=== PATIENT | male | born 1965 | race Caucasian/White ===

== ENCOUNTER → 2018-11-01 | Outpatient (CLI) | payer OTHER ==
[~2018-11-01] MED LIST: AMLO10 PO; ZESTRIL40 MG PO
== END | disposition home or self-care (01) ==
LOC: LAB SHORT 07:47 → PLD 07:47
DX: D48.5 Neoplasm of uncertain behavior of skin (principal)
CPT/HCPCS: 88305

== ENCOUNTER 2020-04-08 10:17 | Emergency (ER) | payer OTHER ==
[~2020-04-08] VITALS: Ht 177.8 cm; Wt 98.9 kg
[2020-04-08 12:07] LABS: BASOPHILS ABSOLUTE AUTO 0.07 K/mm3 (0.00-0.23); BASOPHILS PERCENT AUTO 1 % (0-2); EOSINOPHILS ABSOLUTE AUTO 0.07 K/mm3 (0.00-0.68); EOSINOPHILS PERCENT AUTO 1 % (0-6); Hematocrit 45.3 % (37.0-53.0); Hemoglobin 15.7 g/dL (13.5-17.5); IMMATURE GRAN ABSOLUTE AUTO 0.04 K/mm3 (0.00-0.10); IMMATURE GRAN PERCENT AUTO 0 % (0-1); LYMPHOCYTES ABSOLUTE AUTO 1.23 K/mm3 (0.84-5.20); LYMPHOCYTES PERCENT AUTO 10 % (21-46); MONOCYTES ABSOLUTE AUTO 0.98 K/mm3 (0.16-1.47); MONOCYTES PERCENT AUTO 8 % (4-13); Mean Corpuscular HGB 32.2 pg (26.0-34.0); Mean Corpuscular HGB Conc 34.7 g/dL (31.5-36.5); Mean Corpuscular Volume 93 fL (80-100); Mean Platelet Volume 10.2 fL (9.1-12.4); NEUTROPHILS ABSOLUTE AUTO 10.04 K/mm3 (1.96-9.15); NEUTROPHILS PERCENT AUTO 81 % (41-73); Platelet Count 184 K/mm3 (150-400); RDW Coefficient Variation 12.8 % (11.7-14.2); RDW Standard Deviation 43.9 fL (35.1-46.3); Red Blood Cell Count 4.87 M/mm3 (4.30-5.90); White Blood Cell Count 12.43 K/mm3 (4.00-11.30)
[2020-04-08 12:24] LABS: Alanine Aminotransfer (ALT/SGP 34 U/L (12-78); Alk Phos 57 U/L (50-136); Anion Gap 7 mmol/L (6-16); Aspartate Aminotrans (AST/SGOT 30 U/L (12-37); Bilirubin, Total 0.5 mg/dL (0.1-1.0); Blood Urea Nitrogen 12 mg/dL (8-24); Bun/Creatinine Ratio 12.9 (12.0-20.0); CO2, Blood 28 mmol/L (21-32); Calcium, Blood 8.6 mg/dL (8.5-10.1); Chloride, Blood 103 mmol/L (98-108); Creatinine, Blood 0.93 mg/dL (0.60-1.20); Globulin, Blood 4.2 g/dL (2.2-4.0); Glomerular Filtration Rate >60 (60-); Glucose, Blood 95 mg/dL (70-99); Potassium, Blood 4.4 mmol/L (3.5-5.5); Sodium, Blood 138 mmol/L (136-145); Total Protein, Blood 8.2 g/dL (6.4-8.2)
[2020-04-08 12:29] LABS: International Normalized Ratio 1.03
[2020-04-08] MEDS ORDERED: CLON.1 PO (12:39)
[2020-04-08 12:48] LABS: Source, Urine Voided
[2020-04-08 12:57] LABS: Appearance, Urine Turbid (Clear); Bilirubin, Urine Neg (Neg); Blood, Urine 5+ (Neg); Color, Urine Brown (P-Yellow); Glucose Qualitative, Urine Neg (Neg); Ketones, Urine 1+ (Neg); Leukocyte Esterase, Urine 2+ (Neg); Nitrite, Urine Pos (Neg); Protein, Urine 4+ (Neg); Specific Gravity, Urine 1.025 (1.003-1.022); Urobilinogen, Urine NORM (Normal)
[2020-04-08 12:59] LABS: Red Blood Cells, Urine TNTC /hpf (0-2)
[2020-04-08 13:01] LABS: Bacteria Few /hpf; Squamous Epithelial Cells Rare /hpf (Few); White Blood Cells, Urine TNTC /hpf (0-5)
[2020-04-08] MEDS ORDERED: PHENA200 PO (13:41)
[2020-04-08] MEDS ORDERED: CIPRO500 M1 PO (13:41)
== END 2020-04-08 13:48 | disposition home or self-care (01) ==
LOC: ER 10:17
PROVIDERS: Emergency Medicine
DX: N30.91 Cystitis, unspecified with hematuria (principal); I10 Essential (primary) hypertension; Z79.899 Other long term (current) drug therapy
CPT/HCPCS: 74177; 80053; 81001; 85025; 85610; 85730; 87077; 87086; 87186; 99284-25; Q9967

== ENCOUNTER → 2021-02-19 | Outpatient (CLI) | payer OTHER | END | disposition home or self-care (01) | LOC: LAB EV 05:30 | DX: K27.9 Peptic ulcer, site unspecified, unspecified as acute or chronic, without hemorrhage or perforation (principal) ==

== ENCOUNTER 2024-03-27 12:38 | Day surgery (SDC) | payer OTHER ==
[~2024-03-27] VITALS: Ht 177.8 cm; Wt 107.0 kg
[~2024-03-27 12:38] MED LIST changes: +CIPRO500 M1 PO; +CLON.1 PO; +Lactated Ringer's 1,000 ML IV ONE; +PHENA200 PO
[2024-03-27] MEDS ORDERED: KAPSPARGO SPRIN25 MG PO (13:57)
[2024-03-27] MEDS ORDERED: Lactated Ringer's 1,000 ML IV ONE (14:11)
[2024-03-27] MEDS ORDERED: propofoL 20 ML IV ONE (15:35)
[2024-03-27] MEDS ORDERED: Lidocaine HCl/Pf 1% 5 ML VIAL ONE (15:37)
[2024-03-27] MEDS ORDERED: Midazolam HCl 1MG / ML 2ML Vial ONE (15:38)
[2024-03-27] MEDS ORDERED: FentaNYL Citrate 50 MCG/ML 2 ML Injection ONE (15:38)
[2024-03-27] MEDS ORDERED: Rocuronium Bromide 10 MG/ML 5ML Injection IV ONE (15:38)
[2024-03-27] MEDS ORDERED: Ondansetron HCl 2 MG / ML 2ML Vial ONE (15:39)
[2024-03-27] MEDS ORDERED: Dexamethasone Sod Phos 10 MG/ML 1ML VIAL ONE (15:39)
[2024-03-27] MEDS ORDERED: Normal Saline 10 ML DISP.Syringe XX ONE (15:56)
[2024-03-27] MEDS ORDERED: EPINEPhrine HCl 1 MG/ML 1ML Amp XX ONE (15:56)
[2024-03-27] MEDS ORDERED: Glycopyrrolate 0.2 MG/ML 5ML VIAL ONE (16:02)
[2024-03-27] MEDS ORDERED: Neostigmine Methylsulfate 5MG/5ML SYR ONE (16:02)
[2024-03-27] MEDS ORDERED: Sugammadex Sodium 200 MG/2ML SDV (100 MG/ML) ONE (16:16)
--- NOTE | 2024-03-27 16:39 | NUR ---
03/27/24 1639 DANICA ARMENTA ANESTHESIOLOGIST AWARE OF PVCS PREOP, INTRA OP AND POST OP. PT IS OKAY TO GO HOME IF ASYMPTOMATIC.
[2024-03-27 16:52] VITALS: BP 124/89
--- NOTE | 2024-03-27 16:53 | NUR ---
03/27/24 3633 DANICA ARMENTA JOANNA AT BEDSIDE, NO QUESTIONS OR CONCERNS AT THIS TIME. PRAKASH BE
== END 2024-03-27 17:13 | disposition home or self-care (01) ==
LOC: ORSCSDS 12:38
PROVIDERS: Otolaryngology
PROC: 0CJS8ZZ Inspection of Larynx, Via Natural or Artificial Opening Endoscopic (ICD-10-PCS; principal; 2024-03-27 14:00)
DX: R49.0 Dysphonia (principal); K21.9 Gastro-esophageal reflux disease without esophagitis; I10 Essential (primary) hypertension; G47.33 Obstructive sleep apnea (adult) (pediatric); Z85.828 Personal history of other malignant neoplasm of skin; E66.9 Obesity, unspecified; Z68.33 Body mass index [BMI] 33.0-33.9, adult; Z79.899 Other long term (current) drug therapy
CPT/HCPCS: J0171; J1100; J2001; J2250; J2405; J2704; J2710; J3010; J7120

== ENCOUNTER 2025-01-23 13:48 | Emergency (ER) | payer OTHER ==
[~2025-01-23] VITALS: Ht 177.8 cm; Wt 105.2 kg
[~2025-01-23 13:48] MED LIST changes: +KAPSPARGO SPRIN25 MG PO; -Lactated Ringer's 1,000 ML IV ONE
[2025-01-23] MEDS ORDERED: NEURONTIN300 MG PO (15:18)
[2025-01-23] MEDS ORDERED: Hydrochlorothia50 MG PO (15:18)
[2025-01-23] MEDS ORDERED: PRED20 PO (15:18)
[2025-01-23] MEDS ORDERED: IRBESARTAN300 M3 PO (15:18)
[2025-01-23] MEDS ORDERED: MOBIC15 MG PO (15:18)
[2025-01-23] MEDS ORDERED: PEPCID20 MG PO (15:19)
[2025-01-23] MEDS ORDERED: METO50ER PO (15:19)
[2025-01-23] MEDS ORDERED: ROSUVASTATIN CAL5 MG PO (15:20)
[2025-01-23] MEDS ORDERED: Cyclobenzaprine HCl 10 MG Tab PO ONE (15:55)
[2025-01-23 16:40] LABS: BASOPHILS ABSOLUTE AUTO 0.06 K/mm3 (0.00-0.23); BASOPHILS PERCENT AUTO 1 % (0-2); EOSINOPHILS ABSOLUTE AUTO 0.03 K/mm3 (0.00-0.68); EOSINOPHILS PERCENT AUTO 0 % (0-6); Hematocrit 42.3 % (37.0-53.0); IMMATURE GRAN ABSOLUTE AUTO 0.08 K/mm3 (0.00-0.10); IMMATURE GRAN PERCENT AUTO 1 % (0-1); LYMPHOCYTES ABSOLUTE AUTO 0.71 K/mm3 (0.84-5.20); LYMPHOCYTES PERCENT AUTO 7 % (21-46); MONOCYTES ABSOLUTE AUTO 0.28 K/mm3 (0.16-1.47); MONOCYTES PERCENT AUTO 3 % (4-13); Mean Corpuscular HGB 31.3 pg (26.0-34.0); Mean Corpuscular HGB Conc 35.5 g/dL (31.5-36.5); Mean Corpuscular Volume 88 fL (80-100); Mean Platelet Volume 10.3 fL (9.1-12.4); NEUTROPHILS ABSOLUTE AUTO 9.76 K/mm3 (1.96-9.15); NEUTROPHILS PERCENT AUTO 89 % (41-73); Platelet Count 211 K/mm3 (150-400); RDW Coefficient Variation 12.4 % (11.7-14.2); RDW Standard Deviation 40.4 fL (35.1-46.3); White Blood Cell Count 10.92 K/mm3 (4.00-11.30)
[2025-01-23 16:56] LABS: Albumin, Blood 3.6 g/dL (3.4-5.0); Albumin/Globulin Ratio 0.9 (0.8-1.8); Bilirubin, Total 0.3 mg/dL (0.1-1.0); Bun/Creatinine Ratio 19.7 (12.0-20.0); Calcium, Blood 9.5 mg/dL (8.5-10.1); Creatinine, Blood 0.91 mg/dL (0.60-1.20); Globulin, Blood 3.8 g/dL (2.2-4.0); Potassium, Blood 4.1 mmol/L (3.5-5.5); Total Protein, Blood 7.4 g/dL (6.4-8.2)
[2025-01-23] MEDS ORDERED: Diazepam 5 MG / ML 2ML SYR IV ONE ×2 (17:35→19:25)
[2025-01-23 18:00] VITALS: BP 184/94
[2025-01-23] MEDS ORDERED: Lidocaine 4% 1 Patch TOP ONE (18:30)
[2025-01-23] MEDS ORDERED: CloNIDine 0.1 MG Tab PO ONE (19:25)
[2025-01-23] MEDS ORDERED: FAMO20 PO (19:33)
[2025-01-23] MEDS ORDERED: CYCL10 PO (19:33)
[2025-01-23] MEDS ORDERED: IBUP600 PO (19:33)
[2025-01-24] MEDS ORDERED: Lidocaine 4% 1 Patch TOP SCH (09:00)
== END 2025-01-23 20:00 | disposition home or self-care (01) ==
LOC: ER 13:48
PROVIDERS: Student in an Organized Health Care Education/Training Program
DX: M54.50 Low back pain, unspecified (principal); G89.29 Other chronic pain; I10 Essential (primary) hypertension; Z79.1 Long term (current) use of non-steroidal anti-inflammatories (NSAID); Z79.52 Long term (current) use of systemic steroids; Z79.899 Other long term (current) drug therapy
CPT/HCPCS: 80053; 85025; 96374; 96376; 99284-25; A9270; J3360

== ENCOUNTER → 2025-02-28 | Outpatient (CLI) | payer OTHER ==
[~2025-02-28] MED LIST changes: +CYCL10 PO; +FAMO20 PO; +Hydrochlorothia50 MG PO; +IBUP600 PO; +IRBESARTAN300 M3 PO; +METO50ER PO; +MOBIC15 MG PO; +NEURONTIN300 MG PO; +PEPCID20 MG PO; +PRED20 PO; +ROSUVASTATIN CAL5 MG PO
[2025-02-28 19:42] LABS: BASOPHILS ABSOLUTE AUTO 0.03 K/mm3 (0.00-0.23); BASOPHILS PERCENT AUTO 0 % (0-2); EOSINOPHILS ABSOLUTE AUTO 0.02 K/mm3 (0.00-0.68); EOSINOPHILS PERCENT AUTO 0 % (0-6); Hematocrit 43.8 % (37.0-53.0); Hemoglobin 15.0 g/dL (13.5-17.5); IMMATURE GRAN ABSOLUTE AUTO 0.04 K/mm3 (0.00-0.10); IMMATURE GRAN PERCENT AUTO 0 % (0-1); LYMPHOCYTES ABSOLUTE AUTO 1.38 K/mm3 (0.84-5.20); LYMPHOCYTES PERCENT AUTO 14 % (21-46); MONOCYTES ABSOLUTE AUTO 0.68 K/mm3 (0.16-1.47); MONOCYTES PERCENT AUTO 7 % (4-13); Mean Corpuscular HGB Conc 34.2 g/dL (31.5-36.5); Mean Corpuscular Volume 92 fL (80-100); NEUTROPHILS ABSOLUTE AUTO 7.45 K/mm3 (1.96-9.15); NEUTROPHILS PERCENT AUTO 78 % (41-73); NRBC ABSOLUTE 0.00 K/mm3 (0.00-0.02); NRBC Auto 0.0 /100 WBC (0.0-0.2); Platelet Count 250 K/mm3 (150-400); RDW Coefficient Variation 13.4 % (11.7-14.2); RDW Standard Deviation 45.4 fL (35.1-46.3)
[2025-02-28 20:09] LABS: Alanine Aminotransfer (ALT/SGP 32.0 U/L (12-78); Albumin, Blood 3.8 g/dL (3.4-5.0); Albumin/Globulin Ratio 1.0 (0.8-1.8); Anion Gap 14.0 mmol/L (3-11); Aspartate Aminotrans (AST/SGOT 26.0 U/L (12-37); Bilirubin, Total 0.5 mg/dL (0.1-1.0); Blood Urea Nitrogen 22.0 mg/dL (8-24); CO2, Blood 27.0 mmol/L (21-32); Calcium, Blood 9.3 mg/dL (8.5-10.1); Chloride, Blood 99.0 mmol/L (98-108); Creatinine, Blood 0.67 mg/dL (0.60-1.20); Globulin, Blood 3.9 g/dL (2.2-4.0); Glucose, Blood 114.0 mg/dL (70-99); Potassium, Blood 4.1 mmol/L (3.5-5.5); Sodium, Blood 136.0 mmol/L (136-145); Total Protein, Blood 7.7 g/dL (6.4-8.2)
== END | disposition home or self-care (01) ==
LOC: LAB SHORT 18:21 → LAB 18:21
PROVIDERS: Family Medicine
DX: R06.2 Wheezing (principal)
CPT/HCPCS: 80053; 83880; 85025

== ENCOUNTER 2025-03-02 15:34 | Emergency (ER) | payer OTHER ==
[~2025-03-02] VITALS: Ht 177.8 cm; Wt 107.0 kg
[2025-03-02 15:37] VITALS: BP 162/81
== END 2025-03-02 17:39 | disposition home or self-care (01) ==
LOC: ER 15:34
DX: J39.8 Other specified diseases of upper respiratory tract (principal); I10 Essential (primary) hypertension; Z79.51 Long term (current) use of inhaled steroids; Z79.899 Other long term (current) drug therapy
CPT/HCPCS: 70491; Q9967

== ENCOUNTER 2025-03-04 08:21 | Inpatient (IN) | payer OTHER ==
[~2025-03-04] VITALS: Ht 177.8 cm; Wt 102.4 kg
[~2025-03-04 08:21] MED LIST changes: +HYDROCHLOROTHIAZIDE PO; -Hydrochlorothia50 MG PO
[2025-03-04] MEDS ORDERED: Albuterol 2.5 MG/3 ML VIAL INH SCH (08:25)
[2025-03-04 08:41] LABS: BASOPHILS ABSOLUTE AUTO 0.05 K/mm3 (0.00-0.23); BASOPHILS PERCENT AUTO 1 % (0-2); EOSINOPHILS ABSOLUTE AUTO 0.08 K/mm3 (0.00-0.68); EOSINOPHILS PERCENT AUTO 1 % (0-6); Hematocrit 46.7 % (37.0-53.0); Hemoglobin 15.9 g/dL (13.5-17.5); IMMATURE GRAN ABSOLUTE AUTO 0.05 K/mm3 (0.00-0.10); IMMATURE GRAN PERCENT AUTO 1 % (0-1); LYMPHOCYTES ABSOLUTE AUTO 1.79 K/mm3 (0.84-5.20); LYMPHOCYTES PERCENT AUTO 22 % (21-46); MONOCYTES ABSOLUTE AUTO 0.51 K/mm3 (0.16-1.47); MONOCYTES PERCENT AUTO 6 % (4-13); Mean Corpuscular HGB Conc 34.0 g/dL (31.5-36.5); Mean Corpuscular Volume 93 fL (80-100); NEUTROPHILS ABSOLUTE AUTO 5.62 K/mm3 (1.96-9.15); NEUTROPHILS PERCENT AUTO 69 % (41-73); NRBC ABSOLUTE 0.00 K/mm3 (0.00-0.02); NRBC Auto 0.0 /100 WBC (0.0-0.2); Platelet Count 215 K/mm3 (150-400); RDW Coefficient Variation 13.6 % (11.7-14.2); RDW Standard Deviation 46.4 fL (35.1-46.3)
[2025-03-04 08:59] LABS: Anion Gap 8.0 mmol/L (3-11); Blood Urea Nitrogen 15.0 mg/dL (8-24); CO2, Blood 32.0 mmol/L (21-32); Calcium, Blood 8.2 mg/dL (8.5-10.1); Chloride, Blood 101.0 mmol/L (98-108); Creatinine, Blood 0.67 mg/dL (0.60-1.20); Glucose, Blood 115.0 mg/dL (70-99); Potassium, Blood 4.1 mmol/L (3.5-5.5); Sodium, Blood 137.0 mmol/L (136-145)
[2025-03-04] MEDS ORDERED: Pantoprazole Sodium 40 MG Injection IV ONE (12:35)
[2025-03-04] MEDS ORDERED: Dexamethasone Sod Phos 10 MG/ML 1ML VIAL IV ONE (12:35)
[2025-03-04] MEDS ORDERED: Heparin Sodium,Porcine 5,000 UNIT/0.5 ML SDV SC SCH (14:00)
--- NOTE | 2025-03-04 15:42 | NUR ---
PT ARRIVED TO PCU 19 VIA CART FROM ER @1450. SOA WITH EXERTION, STRIDOR NOTED. SATS WNL ON RA. HR IN 110S, BP IN 180S SYSTOLIC. NOTIFIED DR. ANGULO, AWAITING ORDERS. RT TO BEDSIDE, STATES IMPROVED FROM ER AND RACEMIC EPI GIVEN IN ER. AWAITING ENT CONSULT FOR AM AT THIS TIME. UPDATED TOOL MACHINE SET UP OPERATORPRAKASH GARAY
[2025-03-04 18:06] VITALS: BP 151/98
[2025-03-04] MEDS ORDERED: Dexamethasone Sodium Phosphate 4 MG/ML 1ML Vial IV SCH (18:30)
--- NOTE | 2025-03-04 20:02 | NUR ---
ASSUMPTION OF CARE ASSUMED PT'S CARE AT 1900,BEDSIDE REPORT COMPLETED.PT RESTING IN BED WATCHING TV.PLAN OF CARE REVIEWED.PT DENIES PAIN,DENIES NEEDS.CALL LIGHT AND PT'S ITEMS WITHIN REACH.MONITORING ONGOING PER CAREPLAN.
[2025-03-04 20:17] VITALS: BP 150/88
[2025-03-04 23:45] VITALS: BP 153/85
[2025-03-05] VITALS (9 sets, daily range): BP systolic 136–151; BP diastolic 82–94
[2025-03-05 04:47] LABS: BASOPHILS ABSOLUTE AUTO 0.02 K/mm3 (0.00-0.23); BASOPHILS PERCENT AUTO 0 % (0-2); EOSINOPHILS ABSOLUTE AUTO 0.00 K/mm3 (0.00-0.68); EOSINOPHILS PERCENT AUTO 0 % (0-6); Hematocrit 44.5 % (37.0-53.0); Hemoglobin 15.3 g/dL (13.5-17.5); IMMATURE GRAN ABSOLUTE AUTO 0.05 K/mm3 (0.00-0.10); IMMATURE GRAN PERCENT AUTO 0 % (0-1); LYMPHOCYTES ABSOLUTE AUTO 0.55 K/mm3 (0.84-5.20); LYMPHOCYTES PERCENT AUTO 5 % (21-46); MONOCYTES ABSOLUTE AUTO 0.10 K/mm3 (0.16-1.47); MONOCYTES PERCENT AUTO 1 % (4-13); Mean Corpuscular HGB Conc 34.4 g/dL (31.5-36.5); Mean Corpuscular Volume 90 fL (80-100); NEUTROPHILS ABSOLUTE AUTO 10.92 K/mm3 (1.96-9.15); NEUTROPHILS PERCENT AUTO 94 % (41-73); NRBC ABSOLUTE 0.00 K/mm3 (0.00-0.02); NRBC Auto 0.0 /100 WBC (0.0-0.2); Platelet Count 219 K/mm3 (150-400); RDW Coefficient Variation 13.2 % (11.7-14.2); RDW Standard Deviation 43.9 fL (35.1-46.3)
[2025-03-05 05:12] LABS: Anion Gap 8.0 mmol/L (3-11); Blood Urea Nitrogen 18.0 mg/dL (8-24); CO2, Blood 31.0 mmol/L (21-32); Calcium, Blood 8.4 mg/dL (8.5-10.1); Chloride, Blood 98.0 mmol/L (98-108); Creatinine, Blood 0.55 mg/dL (0.60-1.20); Glucose, Blood 159.0 mg/dL (70-99); Potassium, Blood 3.9 mmol/L (3.5-5.5); Sodium, Blood 133.0 mmol/L (136-145)
[2025-03-05] MEDS ORDERED: Pantoprazole Sodium 40 MG Injection IV SCH (06:00)
--- NOTE | 2025-03-05 06:56 | NUR ---
PT MONITORED DURING THE SHIFT.PT PLACED ON 2L OF OXYGEN WHILE SLEEPING.PT REPORTS THAT HIS CONDITION HAS REMAINED UNCHANGED THROUGHOUT THE SHIFT.PT AWAKE AT THIS TIME,DENIES PAIN,DENIES SOB,DENIES NEEDS.CALL LIGHT AND PT'S ITEMS WITHIN REACH.
[2025-03-05] MEDS ORDERED: Lidocaine HCl 4% 5 ML SDA TOP SCH (08:15)
[2025-03-05] MEDS ORDERED: Oxymetazoline 0.05% Nasal Relief Spray 15mL BTL TOP SCH (08:15)
--- NOTE | 2025-03-05 10:16 | NUR ---
AM NOTE: ASSUMED CARE OF PT THIS AM AFTER RECEIVING REPORT FROM PRAKASH VASQUEZ. PT IS A&Ox4, SOFT/HOARSE VOICE BUT ABLE TO MAKE NEEDS KNOWN. PT DENIES INCREASED SOB BUT DOES ENDORSE DIFFICULTY GETTING DEEP BREATH, RESPIRATIONS MILDLY LABORED W/ STRIDOR NOTED TO UPPER LOBES, O2 SATS >93% ON RA. PT DENIES CP, SR ON MONITOR W/RATE 70s. DR SHANKS TO BEDSIDE THIS AM, ATTEMPTED LARYNGOSCOPY W/ RESULTED PLAN FOR TRACH PLACEMENT THIS AFTERNOON. PT V/U OF UPCOMING PROCEDURE AND NPO STATUS. PT PENDING TRANSFER TO ICU.
[2025-03-05] MEDS ORDERED: Metoclopramide HCl 5MG / ML 2ML Vial ONE (11:16)
[2025-03-05] MEDS ORDERED: Dexmedetomidine HCL 200 MCG / 2 ML ONE (11:23)
[2025-03-05] MEDS ORDERED: Rocuronium Bromide 10 MG/ML 5ML Injection IV ONE (12:27)
[2025-03-05] MEDS ORDERED: Midazolam HCl 1MG / ML 2ML Vial ONE (12:28)
[2025-03-05] MEDS ORDERED: FentaNYL Citrate 50 MCG/ML 2 ML Injection ONE (12:28)
[2025-03-05] MEDS ORDERED: Lidocaine 1%-Epineph 1:200000 30 ML SDV ONE (13:28)
[2025-03-05] MEDS ORDERED: EPINEPhrine HCl 1 MG / ML 30ML Vial ONE (13:28)
[2025-03-05] MEDS ORDERED: Oxymetazoline 0.05% Nasal Relief Spray 15mL BTL ONE (13:28)
--- NOTE | 2025-03-05 13:55 | NUR ---
UPDATE/TRANSFER: PT TO OR FOR PROCEDURE AT 1334 WITH PLANS TO TRANSFER TO ICU FOR RECOVERY. REPORT GIVEN TO PRAKASH DEVI IN ICU TO RECEIVE PT AFTER PROCEDURE.
--- NOTE | 2025-03-05 14:02 | NUR ---
History, Chart, Medications and Allergies reviewed before start of procedure. Pre-Op teaching done. Pt verbalizes understanding. Patient confirms NPO status and agrees with scheduled surgery.
[2025-03-05] MEDS ORDERED: Sugammadex Sodium 200 MG/2ML SDV (100 MG/ML) ONE (15:10)
--- NOTE | 2025-03-05 15:13 | NUR ---
03/05/25 1513 Barbara Wallace PROCEDURE BEGAN MAC SEDATION. AFTER TRACHEOSTOMY, PROCEDURE CONVERTED TO GENERAL AT 1456.
[2025-03-05] MEDS ORDERED: Ondansetron HCl 2 MG / ML 2ML Vial ONE (15:23)
[2025-03-05] MEDS ORDERED: FentaNYL Citrate 50 MCG/ML 2 ML Injection IV PRN ×3 (15:40→16:35)
[2025-03-05] MEDS ORDERED: Ondansetron HCl 2 MG / ML 2ML Vial IV PRN ×2 (15:40→19:10)
[2025-03-05] MEDS ORDERED: HYDROmorphone HCl/Pf 1MG SYR IV PRN ×2 (15:40)
--- NOTE | 2025-03-05 16:34 | NUR ---
1600 CARE ASSUMPTION/ASSESSMENT PT ARRIVING FROM OR TO ICU 7. PT AWAKENS EASILY TO VOICE AND IS NODDING/SHAKING HIS HEAD APPROPRIATELY TO ANSWER YES OR NO QUESTIONS. PT'S BP WNL AND STABLE. MONITOR SHOWING SR 60'S-70'S. SPO2 >92% ON HUMIDIFIED RA. PT W EXESSIVE COUGHING CAUSING DISCOMFORT SO IV FENTANYL GIVEN W GOOD RELIEF. TRACH SITE HAS MINIMAL SEROSAINGOUNOUS DRAINAGE BUT HAS NO CREPITOUS OR EXTENSIVE BLEEDING NOTED. RT AT BEDSIDE ADDRESSING TRACH. PT'S LS ARE CLEAR TO AUSCALTATION. FAMILY AT BEDSIDE. PT APPEARING COMFORTABLE AT THIS TIME SHAKING HIS HEAD NO TO PAIN JUST SIGNALING DISCOMFORT W COUGHING. GUARDIAN AD LITEM AWARE.
[2025-03-05] MEDS ORDERED: Lidocaine HCl 4% 5 ML SDA INH PRN (16:35)
--- NOTE | 2025-03-05 18:36 | NUR ---
DAY SHIFT SUMMARY AFTER ARRIVING TO THE ICU THE PT HAS REMAINED ALERT AND CALM REPORTING MINIMAL PAIN IN THROAT WHICH WAS RELIEVED W IV PAIN MEDICATION. PT'S SPO2 >92% ON HUMIDIFIED RA. BP WNL AND STABLE. MONITOR SHOWING SR 60'S. MINIMAL DISCHARGE FROM AROUND TRACH. WILL REPOR TO ONCOMING RN.
--- NOTE | 2025-03-05 19:59 | NUR ---
ASSUMED CARE OF PATIENT AT 1900 PATIENT IS ALERT AND ORIENTED X4, FOLLOWS COMMANDS. WRITES NEEDS ON NOTEPAD DUE TO NEW TRACH PLACEMENT TODAY. SP02 94% ON RA, HUMIDIFIED AIR ON BLOW-BY. TRACH SITE OOZING BLOOD, INCREASES WITH COUGHING. GAUZE PADS IN PLACE, TRACH SUTURED AND TRACH BAND ON. WILL CHANGE QUAZE AND CLEAN SITE PRN. PATIENT DENIES DIFFICULTY BREATHING AT THIS TIME. HR SR 70s, BP STABLE, DENIES CP/PRESSURE. PATIENT COMPLAINS OF NAUSEA, MEDICATED PER EMAR. SWABS PROVIDED FOR DRY MOUTH. URINAL AT BEDSIDE. CALL LIGHT IN REACH. SEE SHIFT ASSESSMENT FOR MORE INFORMATION
[2025-03-06] VITALS (14 sets, daily range): BP systolic 126–180; BP diastolic 83–117
[2025-03-06 03:18] LABS: BASOPHILS ABSOLUTE AUTO 0.01 K/mm3 (0.00-0.23); BASOPHILS PERCENT AUTO 0 % (0-2); EOSINOPHILS ABSOLUTE AUTO 0.07 K/mm3 (0.00-0.68); EOSINOPHILS PERCENT AUTO 0 % (0-6); Hematocrit 44.4 % (37.0-53.0); Hemoglobin 15.0 g/dL (13.5-17.5); IMMATURE GRAN ABSOLUTE AUTO 0.09 K/mm3 (0.00-0.10); IMMATURE GRAN PERCENT AUTO 1 % (0-1); LYMPHOCYTES ABSOLUTE AUTO 0.41 K/mm3 (0.84-5.20); LYMPHOCYTES PERCENT AUTO 2 % (21-46); MONOCYTES ABSOLUTE AUTO 0.58 K/mm3 (0.16-1.47); MONOCYTES PERCENT AUTO 3 % (4-13); Mean Corpuscular HGB Conc 33.8 g/dL (31.5-36.5); Mean Corpuscular Volume 91 fL (80-100); NEUTROPHILS ABSOLUTE AUTO 16.74 K/mm3 (1.96-9.15); NEUTROPHILS PERCENT AUTO 94 % (41-73); NRBC ABSOLUTE 0.00 K/mm3 (0.00-0.02); NRBC Auto 0.0 /100 WBC (0.0-0.2); Platelet Count 212 K/mm3 (150-400); RDW Coefficient Variation 13.3 % (11.7-14.2); RDW Standard Deviation 44.8 fL (35.1-46.3)
[2025-03-06 03:35] LABS: Anion Gap 6.0 mmol/L (3-11); Blood Urea Nitrogen 23.0 mg/dL (8-24); CO2, Blood 33.0 mmol/L (21-32); Calcium, Blood 8.5 mg/dL (8.5-10.1); Chloride, Blood 100.0 mmol/L (98-108); Creatinine, Blood 0.77 mg/dL (0.60-1.20); Glucose, Blood 156.0 mg/dL (70-99); Potassium, Blood 4.4 mmol/L (3.5-5.5); Sodium, Blood 135.0 mmol/L (136-145)
--- NOTE | 2025-03-06 06:08 | NUR ---
SHIFT SUMMARY PATIENT REMAINS ALERT AND ORIENTED X4. PATIENT IN HUMIDIFIED RA MOST THE NIGHT, PLACED ON 40% FI02 WHILE SLEEPING DUE TO SP02 DOWN TO 85%. PATIENT HAS MINIMALLY PRODUCTIVE COUGH, DENIES SOB. TRACH DRESSING CHANGED MULTIPLE TIMES THIS SHIFT. HR SR 60s, BP STABLE, DENIES CP/PRESSURE. SOME ABDOMINAL PAIN, DID HAVE LARGE LOOSE STOOL. UP TO BSC WITH MINIMAL ASSISTANCE. CALL LIGHT IN REACH
[2025-03-06] MEDS ORDERED: Magnesium Sulf 2 GM/Water 50ML 50 ML IV ONE (07:50)
--- NOTE | 2025-03-06 08:37 | NUR ---
PROVIDER CONTACT THIS RN SPOKE W DR. SHANKS ON THE PHONE WHO SAID IT WAS OK TO PLACE SPEAKINTG VALVE ON THE PT'S TRACH AND DEFLATE TO ALLOW THE PT TO ATTEMPT TO SPEAK. DR. SHANKS STATING THAT TRACH SHOULD BE CHANGED WEDNESDAY AT THE EARLIEST TO A 8.0 UNCUFFED TRACH. WILL PASS ON TO RT.
--- NOTE | 2025-03-06 11:05 | NUR ---
AM NOTE PT AWAKE AND ALERT AT TIMEN OF BEDSIDE REPORT. NSR ON MONITOR, MAPS >65, +1 EDEMA ON BLE. 8.[address] ON [address] W/ SUTURES. SEROSANGUINEOUS DRAINAGE AT SITE, DRESSING CHANGED. ON RA W/ HEATED HUMIDITY VIA TRACH COLLAR. LUNG SOUNDS CLEAR T/O GUAMAN. ABD DISTENDED, BASELINE PER PT, NONTENDER TO PALPATION, BOWEL SOUNDS HYPERACTIVE, BM TODAY. WNL, VOIDING INDEPENDENTLY. SKIN INTACT W/O BREAKDOWN AND SBA ASSIST UP IN THE ROOM. PT WAS PLACED ON SPEAKING VALVE W/ RT AND GIVEN EDUCATION ON TRACH CARE. TOLERATING WELL. ACCESS: PIV LAC, PIV RW
--- NOTE | 2025-03-06 17:42 | NUR ---
PM NOTE HEAD TO TOE ASSESSMENT UNCHANGED FROM AM NOTE. PT CONTINUES TO MANAGE SELF TRACH CARE/SUCTIONING WELL AND WAS ABLE TO AMBULATE AROUND UNIT MULTIPLE TIMES THROUGHOUT SHIFT. DRAINAGE AROUND TRACH SITE STILL SEROSANGUINEOUS, HOWEVER HAS LESSNED TO MINIMAL AMOUNT. CALLS APPROPRIATELY AND IS ABLE TO MAKE NEEDS KNOWN. ACCESS: LAC PIV, RW PIV
--- NOTE | 2025-03-06 18:40 | NUR ---
PT TRANSFERRED TO PCU 1 IN WHEELCHAIR W/ ALL ITEMS AND CHART. RECEIVING RN MET AT BEDSIDE. PT'S WAS ATTEMPTED TO BE CALLED, UNABLE TO BE REACHED TO INFORM OF TRANSFER.
--- NOTE | 2025-03-06 18:48 | NUR ---
PT TO PCU: PT TRANSFERED TO PCU F/ICU, REPORT RECEIVED FROM PRAKASH FUNG. PT ARRIVES VIA W/C AND TRANSFERS SELF TO RECLINER. HUMIDIFIER AND SUCTION SET UP. TELEMETRY VERIFIED. CALL LIGHT PLACED IN REACH.
[2025-03-06] MEDS ORDERED: HydrALAZINE HCl 20 MG / ML 1ML Vial IV PRN (21:15)
[2025-03-07] VITALS (8 sets, daily range): BP systolic 147–194; BP diastolic 87–132
[2025-03-07 03:42] LABS: BASOPHILS ABSOLUTE AUTO 0.01 K/mm3 (0.00-0.23); BASOPHILS PERCENT AUTO 0 % (0-2); EOSINOPHILS ABSOLUTE AUTO 0.00 K/mm3 (0.00-0.68); EOSINOPHILS PERCENT AUTO 0 % (0-6); Hematocrit 47.3 % (37.0-53.0); Hemoglobin 16.0 g/dL (13.5-17.5); IMMATURE GRAN ABSOLUTE AUTO 0.04 K/mm3 (0.00-0.10); IMMATURE GRAN PERCENT AUTO 0 % (0-1); LYMPHOCYTES ABSOLUTE AUTO 0.78 K/mm3 (0.84-5.20); LYMPHOCYTES PERCENT AUTO 6 % (21-46); MONOCYTES ABSOLUTE AUTO 1.24 K/mm3 (0.16-1.47); MONOCYTES PERCENT AUTO 9 % (4-13); Mean Corpuscular HGB Conc 33.8 g/dL (31.5-36.5); Mean Corpuscular Volume 93 fL (80-100); NEUTROPHILS ABSOLUTE AUTO 12.15 K/mm3 (1.96-9.15); NEUTROPHILS PERCENT AUTO 85 % (41-73); NRBC ABSOLUTE 0.00 K/mm3 (0.00-0.02); NRBC Auto 0.0 /100 WBC (0.0-0.2); Platelet Count 209 K/mm3 (150-400); RDW Coefficient Variation 13.7 % (11.7-14.2); RDW Standard Deviation 46.7 fL (35.1-46.3)
[2025-03-07 04:04] LABS: Anion Gap 8.0 mmol/L (3-11); Blood Urea Nitrogen 27.0 mg/dL (8-24); CO2, Blood 30.0 mmol/L (21-32); Calcium, Blood 8.5 mg/dL (8.5-10.1); Chloride, Blood 101.0 mmol/L (98-108); Creatinine, Blood 0.88 mg/dL (0.60-1.20); Glucose, Blood 134.0 mg/dL (70-99); Potassium, Blood 3.9 mmol/L (3.5-5.5); Sodium, Blood 135.0 mmol/L (136-145)
--- NOTE | 2025-03-07 06:53 | NUR ---
PT STABLE THROUGHOUT THE SHIFT. PT DID HAVE EPISODE OF HTN AND WAS MEDICATED WITH HYDRALAZINE WITH GOOD RESULT. OTHER VITAL SIGNS WNL. PT TOLERATING NEW TRACH WELL. PT ABLE TO USE SPEAKING VALVE ON TRACH WELL AND SPEACH IS BECOMING CLEARER. TRACH REMAINS SUTURED IN PLACE, SMALL AMOUNT OF SEROSANGENOUS DRAINAGE. TRACH CARE PERFORED LAST NOC AND PT TOLERATED WELL. PT IS C/O LOOSE BM. PT REMAINS NPO EXCEPT ICE CHIPS.
--- NOTE | 2025-03-07 16:31 | NUR ---
PT IS A&Ox4 AND ABLE TO MAKE NEEDS KNOWN. HE IS ON BLOW-BY FOR HUMIDIFICATION W/O2 SATS >92%. HE IS INDEPENDENT FOR AMBULATION. HE HAS AN 8 SHILEY TRACH THAT WAS PLACED 03/05, SUTURES ARE IN PLACE. AND HE DOES HIS OWN TRACH CARE. HE NOW TAKES HIS MEDS CRUSHED IN APPLESAUCE. NO NEEDS OR CONCERNS NOTED @ THIS TIME. HE IS SITTING UP IN THE RECLINER WATCHING TV WITH HIS . CALL LIGHT AND PERSONAL BELONGINGS IN REACH.
--- NOTE | 2025-03-08 03:08 | NUR ---
PHYSICIAN COMMUNICATION PATIENT COMPLAINING OF BLOATING AND FEELING UNCOMFORTABLE IN HIS BELLY. INFORMED DR FROST OF THIS AND REPORTED FINDINGS FROM X-RAY ON DAY SHIFT. DR FROST TO LOOK INTO PATIENT'S CHART AND INPUT ORDERS.
[2025-03-08 03:42] VITALS: BP 162/96
--- NOTE | 2025-03-08 05:20 | NUR ---
SHIFT SUMMARY PATIENT ALERT AND ORIENTED X4. MEDICATED PER EMAR WITH SIMETHECONE CHEW. SLEEP OXYMETRY STUDY COMPLETED BY RT. ON ROOM AIR. PATIENT HYPERTENSIVE, PRN HYDRALAZINE ADMINISTERED. NO ISSUES NOTED ON TELE. WILL CONTINUE TO MONITOR. CALL LIGHT WITHIN REACH.
[2025-03-08 05:55] LABS: BASOPHILS ABSOLUTE AUTO 0.01 K/mm3 (0.00-0.23); BASOPHILS PERCENT AUTO 0 % (0-2); EOSINOPHILS ABSOLUTE AUTO 0.02 K/mm3 (0.00-0.68); EOSINOPHILS PERCENT AUTO 0 % (0-6); Hematocrit 45.4 % (37.0-53.0); Hemoglobin 15.5 g/dL (13.5-17.5); IMMATURE GRAN ABSOLUTE AUTO 0.05 K/mm3 (0.00-0.10); IMMATURE GRAN PERCENT AUTO 0 % (0-1); LYMPHOCYTES ABSOLUTE AUTO 0.93 K/mm3 (0.84-5.20); LYMPHOCYTES PERCENT AUTO 7 % (21-46); MONOCYTES ABSOLUTE AUTO 1.32 K/mm3 (0.16-1.47); MONOCYTES PERCENT AUTO 10 % (4-13); Mean Corpuscular HGB Conc 34.1 g/dL (31.5-36.5); Mean Corpuscular Volume 92 fL (80-100); NEUTROPHILS ABSOLUTE AUTO 11.32 K/mm3 (1.96-9.15); NEUTROPHILS PERCENT AUTO 83 % (41-73); NRBC ABSOLUTE 0.00 K/mm3 (0.00-0.02); NRBC Auto 0.0 /100 WBC (0.0-0.2); Platelet Count 163 K/mm3 (150-400); RDW Coefficient Variation 13.7 % (11.7-14.2); RDW Standard Deviation 46.8 fL (35.1-46.3)
[2025-03-08 06:29] LABS: Anion Gap 9.0 mmol/L (3-11); Blood Urea Nitrogen 22.0 mg/dL (8-24); CO2, Blood 29.0 mmol/L (21-32); Calcium, Blood 8.6 mg/dL (8.5-10.1); Chloride, Blood 101.0 mmol/L (98-108); Creatinine, Blood 0.75 mg/dL (0.60-1.20); Glucose, Blood 121.0 mg/dL (70-99); Potassium, Blood 3.5 mmol/L (3.5-5.5); Sodium, Blood 135.0 mmol/L (136-145)
[2025-03-08 08:58] VITALS: BP 164/89
[2025-03-08] MEDS ORDERED: Gabapentin 250 MG/5 ML ORAL SYRINGE PO SCH (09:14)
--- NOTE | 2025-03-08 09:51 | NUR ---
Pt stated difficulty breathing when speaking valve was on. States he cleaned it and put it away last night, when he tried to use it this morning he cannot breathe. Verified that it was clean, and pt also self suctioned. Called RT and ST who came to evaluate him. The pt changed out the inner cannula himself, but he is still having difficulty with the speaking valve. ST Lamb called Dr. Miller. Pt was able to eat breakfast earlier without any difficulty, and also was able to take his meds crushed in applesauce and take oral liquids without difficulty. His is at the bedside.
[2025-03-08 11:19] VITALS: BP 126/71
[2025-03-08 14:48] VITALS: BP 129/81
--- NOTE | 2025-03-08 14:53 | NUR ---
REASSESSMENT OF RESPIRATORY STATUS DOCUMENTED IN INTERVENTIONS. AND SISTER IN LAW AT THE BEDSIDE.
--- NOTE | 2025-03-08 19:47 | NUR ---
Pt had bloody bowel movement, at 1830, on bedpan. She said that at home she only lies down, sits or stands for no more than 2 hours at a time and would like to just sit on side of bed for some relief of her chronic back and LLE pain. Assisted with this after using the bedpan with SCHOOL [employer]RIC[employer] DEVELOPER and break RN helping. At 1900 sequential automatic blood pressure alerted RN at station, and pt was found lying on her back in bed, barely responsive. SHRUB PLANTER was called. AFter a few minutes she was talking and responding appropriately to questions but blood pressure remained quite low. LR at 75 cc/hour changed to bolus. Pt's daughter was contacted by supercharger mechanic. Dr. Del Toro was contacted during the SHRUB PLANTER. Stat H&H revealed sudden drop and stat CT was ordered, and orders to transfer pt to ICU. report given to PRAKASH Amanda at 1945. Pt is in CT.
[2025-03-08 20:23] VITALS: BP 139/86
--- NOTE | 2025-03-08 21:30 | NUR ---
ASSUMPTION OF CARE ASSUMED PT'S CARE AT 1900,PT SITTING UP IN CHAIR.BEDSIDE REPORT COMPLETED,PT DENIES PAIN,REPORTS ABDOMINAL DISCOMFORT.PT REQUESTING GAS-X.PT NOTIFIED NO ORDER IN PLACE BUT WILL NOTIFY MD.PT PERFORMING TRACH CARE.PLAN OF CARE REVIEWED.PT DENIES FURTHER NEEDS.PT INDEPENDENT IN ROOM ,MONITORING ONGOING PER CAREPLAN.
[2025-03-09] VITALS (7 sets, daily range): BP systolic 120–167; BP diastolic 63–95
[2025-03-09 04:10] LABS: BASOPHILS ABSOLUTE AUTO 0.01 K/mm3 (0.00-0.23); BASOPHILS PERCENT AUTO 0 % (0-2); EOSINOPHILS ABSOLUTE AUTO 0.09 K/mm3 (0.00-0.68); EOSINOPHILS PERCENT AUTO 1 % (0-6); Hematocrit 43.5 % (37.0-53.0); Hemoglobin 14.9 g/dL (13.5-17.5); IMMATURE GRAN ABSOLUTE AUTO 0.04 K/mm3 (0.00-0.10); IMMATURE GRAN PERCENT AUTO 0 % (0-1); LYMPHOCYTES ABSOLUTE AUTO 1.10 K/mm3 (0.84-5.20); LYMPHOCYTES PERCENT AUTO 9 % (21-46); MONOCYTES ABSOLUTE AUTO 1.32 K/mm3 (0.16-1.47); MONOCYTES PERCENT AUTO 10 % (4-13); Mean Corpuscular HGB Conc 34.3 g/dL (31.5-36.5); Mean Corpuscular Volume 92 fL (80-100); NEUTROPHILS ABSOLUTE AUTO 10.15 K/mm3 (1.96-9.15); NEUTROPHILS PERCENT AUTO 80 % (41-73); NRBC ABSOLUTE 0.00 K/mm3 (0.00-0.02); NRBC Auto 0.0 /100 WBC (0.0-0.2); Platelet Count 167 K/mm3 (150-400); RDW Coefficient Variation 13.2 % (11.7-14.2); RDW Standard Deviation 45.1 fL (35.1-46.3)
[2025-03-09 04:44] LABS: Anion Gap 8.0 mmol/L (3-11); Blood Urea Nitrogen 19.0 mg/dL (8-24); CO2, Blood 30.0 mmol/L (21-32); Calcium, Blood 8.1 mg/dL (8.5-10.1); Chloride, Blood 97.0 mmol/L (98-108); Creatinine, Blood 0.69 mg/dL (0.60-1.20); Glucose, Blood 115.0 mg/dL (70-99); Potassium, Blood 3.3 mmol/L (3.5-5.5); Sodium, Blood 132.0 mmol/L (136-145)
--- NOTE | 2025-03-09 06:23 | NUR ---
PT MONITORED DURING THE SHIFT,NOTED PT'S OXYGEN SATURATION OCCASIONALLY DROPPING DOWN LOW AT 77% ON RA.PT PLACED ON 40%FIO2 TO MAINTAIN OXYGEN SATURATION >92%.PT PERFORMING SELF TRACH CARE.PT REPORTS THAT THE ABDOMINAL BLOATING HAS IMPROVED " A LITTLE BIT".PT DENIES PAIN,DENIES NEEDS AT THIS TIME.CALL LIGHT AND PT'S ITEMS WITHIN REACH.MONITORING ONGOING PER CAREPLAN.
--- NOTE | 2025-03-09 18:40 | NUR ---
SUMMARY DR. SHANKS REPLACED TRACH THIS AM, WITH DIFFICULTY, WANTS TO KEEP PT OVER WEEKEND TO ALLOW STOMA MORE TIME TO HEAL. PT TO D/C WEDNESDAY MORNING EARLY TO MAKE IT TO 11:30 PET SCAN APPT. SPEECH HOARSE DUE TO TRACH. STILL GETTING USED TO SPEAKING VALVE, REPORTS HAVING DIFFICUTLY TAKING FULL BREATHS WITH IT ON. RT FOLLOWING PT, SUCTIONED. PT COMPLAINS OF ABD DISTENSION/DISCOMFORT, PRN SIMETHICONE ADDED TO MED REGIMEN PER DR. MACDONALD. POTASSIUM REPLETED TODAY WITH [address] MACDONALD. PT ALSO REPORTS HAVING 3 LOOSE BOWEL MOVEMENTS TODAY. APPETITE HAS BEEN POOR. ST FOLLOWING, UPGRADED DIET TO SOFT/BITE SIZE. MEDS CRUSHED IN APPLESAUCE. WAS AT BEDSIDE MAJORITY OF DAY. ABLE TO MAKE NEEDS KNOWN. IND IN ROOM. PT PERFORMS MAJORITY OF TRACH CARE INDEPENDENTLY, RT EDUCATING PATIENT.
--- NOTE | 2025-03-09 21:17 | NUR ---
ASSUMED CARE OF THIS PT AT APROX 1900. PT IS A+O X4 ABLE TO MAKE NEEDS KNOWN, SPEECH IS HORSE WILL WRITE NEEDS OUT ON PAPER IF NEEDED. PT IS IDEPENT IN THE ROOM AND TO THE BATHROOM. PT IS CARING FOR TRACH, THIS RN DID ASSESS TRACH AFTER PT CARED FOR IT. VSS. DENIES CHEST PAIN OR PRESSURE, PT IS NOW RESTING COMFORTABLY IN BED W/ HOB AT 30 DEGREES. CALL LIGHT IN REACH
[2025-03-10 03:18] VITALS: BP 142/72
[2025-03-10 04:25] LABS: BASOPHILS ABSOLUTE AUTO 0.01 K/mm3 (0.00-0.23); BASOPHILS PERCENT AUTO 0 % (0-2); EOSINOPHILS ABSOLUTE AUTO 0.19 K/mm3 (0.00-0.68); EOSINOPHILS PERCENT AUTO 1 % (0-6); Hematocrit 42.3 % (37.0-53.0); Hemoglobin 14.5 g/dL (13.5-17.5); IMMATURE GRAN ABSOLUTE AUTO 0.05 K/mm3 (0.00-0.10); IMMATURE GRAN PERCENT AUTO 0 % (0-1); LYMPHOCYTES ABSOLUTE AUTO 1.22 K/mm3 (0.84-5.20); LYMPHOCYTES PERCENT AUTO 9 % (21-46); MONOCYTES ABSOLUTE AUTO 1.41 K/mm3 (0.16-1.47); MONOCYTES PERCENT AUTO 11 % (4-13); Mean Corpuscular HGB Conc 34.3 g/dL (31.5-36.5); Mean Corpuscular Volume 90 fL (80-100); NEUTROPHILS ABSOLUTE AUTO 10.47 K/mm3 (1.96-9.15); NEUTROPHILS PERCENT AUTO 78 % (41-73); NRBC ABSOLUTE 0.00 K/mm3 (0.00-0.02); NRBC Auto 0.0 /100 WBC (0.0-0.2); Platelet Count 169 K/mm3 (150-400); RDW Coefficient Variation 12.9 % (11.7-14.2); RDW Standard Deviation 42.8 fL (35.1-46.3)
[2025-03-10 04:46] LABS: Anion Gap 8.0 mmol/L (3-11); Blood Urea Nitrogen 20.0 mg/dL (8-24); CO2, Blood 30.0 mmol/L (21-32); Calcium, Blood 8.3 mg/dL (8.5-10.1); Chloride, Blood 95.0 mmol/L (98-108); Creatinine, Blood 0.69 mg/dL (0.60-1.20); Glucose, Blood 108.0 mg/dL (70-99); Potassium, Blood 3.4 mmol/L (3.5-5.5); Sodium, Blood 130.0 mmol/L (136-145)
--- NOTE | 2025-03-10 05:23 | NUR ---
NOC SHIFT SUMMARY PT REMAINS A+O X4 ABLE TO MAKE NEEDS KNOWN. PT IS INDEPENT IN THE ROOM. PROVIDING TRACH CARE SUNCATIONED SELF X1, THIS RN ASSISTED WITH DRESSING CHANGE ONCE DRESSING BECAME SATURATED. PT IS HAVING A PRODUCTIVE COUGH, SPUTUM IS WHITE THICK W/ PINK TINGE TO IT. RA AIR ALL NIGHT SATURATION >93%. ON TELE SHOWING NSR RATE CURRENTLY IN THE 80s. DENIES CHEST PAIN OR PRESSURE. DENIES NEEDS AT THIS TIME, CALL LIGHT IN REACH WILL CONTINUE W/ PLAN OF CARE AND REPORT TO ONCOMING RN.
[2025-03-10 07:34] VITALS: BP 129/79
[2025-03-10 11:23] VITALS: BP 145/70
[2025-03-10 16:52] VITALS: BP 131/82
[2025-03-10 17:26] VITALS: BP 163/90
--- NOTE | 2025-03-10 18:23 | NUR ---
PT SUMMARY; NO ACUTE CHANGE FOR THE SHIFT. TRACHESTOMY REMAINED INTACT MANAGED PER RT, PT SELF SUCTIONS HAS SOME PINK/YELLOW MUCUS, PT EDUCATED OF TRACH CARE AND PLACING SPLIT GAUZE UNDER TO PREVENT FROM BREAKDOWN. AT BEDSIDE WELL DURING EDUCATION, PT ABLE TO DEMONSTRATE IN FRONT OF MIRROR. IN POSITIVE SPIRITS TODAY ABLE TO WALK IN THE HALLWAY HAS BEEN INDEPENDENT IN THE ROOM. VITALS HAS BEEN STABLE. AWAITING Wednesday FOR DISCHARGE NO OTHER ISSUES REPORTED FOR THE SHIFT. ABLE TO MAKE NEEDS KNOWN WILL REPORT TO ONCOMING SHIFT
[2025-03-10 20:27] VITALS: BP 126/74
[2025-03-11 00:17] VITALS: BP 142/83
[2025-03-11 03:58] VITALS: BP 152/78
[2025-03-11 05:21] LABS: BASOPHILS ABSOLUTE AUTO 0.01 K/mm3 (0.00-0.23); BASOPHILS PERCENT AUTO 0 % (0-2); EOSINOPHILS ABSOLUTE AUTO 0.17 K/mm3 (0.00-0.68); EOSINOPHILS PERCENT AUTO 1 % (0-6); Hematocrit 42.5 % (37.0-53.0); Hemoglobin 14.6 g/dL (13.5-17.5); IMMATURE GRAN ABSOLUTE AUTO 0.04 K/mm3 (0.00-0.10); IMMATURE GRAN PERCENT AUTO 0 % (0-1); LYMPHOCYTES ABSOLUTE AUTO 0.92 K/mm3 (0.84-5.20); LYMPHOCYTES PERCENT AUTO 7 % (21-46); MONOCYTES ABSOLUTE AUTO 1.59 K/mm3 (0.16-1.47); MONOCYTES PERCENT AUTO 12 % (4-13); Mean Corpuscular HGB Conc 34.4 g/dL (31.5-36.5); Mean Corpuscular Volume 90 fL (80-100); NEUTROPHILS ABSOLUTE AUTO 10.35 K/mm3 (1.96-9.15); NEUTROPHILS PERCENT AUTO 79 % (41-73); NRBC ABSOLUTE 0.00 K/mm3 (0.00-0.02); NRBC Auto 0.0 /100 WBC (0.0-0.2); Platelet Count 177 K/mm3 (150-400); RDW Coefficient Variation 12.6 % (11.7-14.2); RDW Standard Deviation 41.4 fL (35.1-46.3)
[2025-03-11 05:40] LABS: Anion Gap 8.0 mmol/L (3-11); Blood Urea Nitrogen 19.0 mg/dL (8-24); CO2, Blood 31.0 mmol/L (21-32); Calcium, Blood 8.5 mg/dL (8.5-10.1); Chloride, Blood 93.0 mmol/L (98-108); Creatinine, Blood 0.73 mg/dL (0.60-1.20); Glucose, Blood 110.0 mg/dL (70-99); Potassium, Blood 3.4 mmol/L (3.5-5.5); Sodium, Blood 129.0 mmol/L (136-145)
--- NOTE | 2025-03-11 05:44 | NUR ---
NOC SHIFT SUMMARY PT IS A+O X4 ABLE TO MAKE NEEDS KNONW, WILL USE PEN AND PAPER TO COMMUNICATE IF NEEDED. PT IS IDEPENT IN THE ROOM. HE IS PROVIDING MOST ALL CARE TO HIS TRACH ALONE BUT WILL ASK FOR ASSISTANCE IF HE NEEDS IF. PT HAS A PRODUCTIVE COUGH WITH THICK MUCUS. PT WAS HAVING DIFFICULTY SLEEPING IN THE BED SO WE SET HIM UP IN THE RECLINER AND HE WAS ABLE TO SLEEP FOR A FEW HOURS. DENIES CHEST PAIN OR PRESSURE. HE HAS BEEN ROOM AIR ALL SHIFT WITH HUMIDITY FOR TRACH WHILE SLEEPING. PT NEEDS TO DISCHARGE EARLY WEDNESDAY MORNING FOR A PET SCAN AT 1130. CALL LIGHT IN REACH, CARE CONTINUES, WILL REPORT TO ONCOMING RN.
[2025-03-11 07:52] VITALS: BP 133/79
[2025-03-11 12:40] VITALS: BP 104/61
[2025-03-11 16:44] VITALS: BP 117/63
--- NOTE | 2025-03-11 17:57 | NUR ---
PT SUMMARY; NO ACUTE CHANGES FOR THE SHIFT. VITALS HAS BEEN STABLE. PT HAS BEEN INDEPENDENT IN THE ROOM. REQUESTED TO NOT GET BOTHERED TODAY DUE TO LACK OF SLEEP LAST NIGHT. IN POSITIVE SPIRITS AND IS EXPECTING TO GO HOME IN AM. GAS X CHEWS GIVEN PER EMAR. CAME IN TO VISIT. TOLERATING PO INTAKE. ABLE TO MAKE NEEDS KNOWN, CALLS APPROPRIATELY. WILL REPORT TO ONCOMING SHIFT
--- NOTE | 2025-03-11 18:05 | NUR ---
PT SUMMARY; PT GOT INCREASE CONFUSION POST ANGIO NEEDING 1;1 SUPERVISON WHILE RECOVERING PT WAS UNABLE TO KEEP LAYING FLAT FOR 3 HRS, PT HAS BEEN TRYING TO GET OUT BED MULTIPLE TIMES. SOME HALLUCINATION, KEEPS INSISTING HE NE IS COMING HOME TODAY WITH THE SON, PT WAS REDIRECETED MULTIPLE TIMES. PT ALSO VERY WHEEZY AND GOT SOB NEEDING ATLEAST 3.5L OF O2 VIA NASAL CANNULA. ALSO HAD SOME BLOOD TINGED SPUTUM TWICE. DR CODY MADE AWARE, ORDERED CHEST XRAY AND SOME BREATHING TX. DR CODY CALLED AND MADE AWARE OF THE CXR THE RESULT. DR TRAMMELL CAME BY WELL AND MADE AWARE OF THE CHEST PAIN 3/10 ON AND OFF, EKG WAS DONE DR TRAMMELL ABLE TO REVIEW. PT WAS ABLE TO PERFORM SELF CATH AT BEFORE GOING TO PROCEDURE AND THIS RN PERFORMED THE STRAIGTH CATH DURING POST ANGIO RECOVERY. NO TOHER ISSUES AT THIS TIME, BED ALARM ON FOR SAFETY AND FREQUENT CHECKS. WILL REPORT TO ONCOMING SHIFT
[2025-03-11 19:34] VITALS: BP 118/67
--- NOTE | 2025-03-11 21:40 | NUR ---
ASSUMED CARE AROUND 1900 HRS PT IS A+O X4 ABLE TO MAKE NEEDS KNOWN. PATIENT REQUESTED TO BE LEFT ALONE MUCH POSSIBLE TONIGHT D/T HIM BEING UNABLE TO SLEEP SINCE ARRIVING TO THE HOSPITAL. VITALS AND PM CARE PREFORMED. VSS. PT SITTING UP IN CHAIR ATTEMPING TO GET SOME SLEEP. CALL LIGHT IN REACH.
[2025-03-12 04:18] VITALS: BP 122/62
--- NOTE | 2025-03-12 05:44 | NUR ---
NOC SHIFT SUMMARY NO ACUTE CHANGES SINCE START OF SHIFT. PATIENT WAS ABLE TO SLEEP MOST OF THE NIGHT LIKE HE REQUESTED. NPO SINCE MIDNIGHT FOR OUTPATIENT PET SCAN. SLEEPING IN RECLINER AT THIS TIME. CALL LIGHT IN REACH. WILL REPORT TO ONCOMING RN.
[2025-03-12] MEDS ORDERED: GABAPENTIN PO (09:42)
--- NOTE | 2025-03-12 10:38 | NUR ---
Dishcarge note. Pt discharged home. All discharge education was given to Pt and . All questions were answered. Pt held all AM meds since he is supposed to be NPO until after his PET scan this morning. All belongings were taken with Pt. Pt was escorted to the door by staff.
[2025-03-12 10:40] VITALS: BP 126/71
== END 2025-03-12 11:06 | disposition home or self-care (01) | DRG 11 ==
LOC: ER 08:21 → PCU 12:33 → ICUE 12:33 → PCU 14:48 → ICUE 03-05 13:37 → PCU 03-06 18:30
PROVIDERS: Family Medicine; Otolaryngology; Student in an Organized Health Care Education/Training Program; ADMIT Internal Medicine
PROC: 0B110F4 Bypass Trachea to Cutaneous with Tracheostomy Device, Open Approach (ICD-10-PCS; principal; 2025-03-05 14:00)
PROC: 0CBS8ZX Excision of Larynx, Via Natural or Artificial Opening Endoscopic, Diagnostic (ICD-10-PCS; 2025-03-05 14:00)
PROC: 0B21XFZ Change Tracheostomy Device in Trachea, External Approach (ICD-10-PCS; 2025-03-09)
DX: C32.2 Malignant neoplasm of subglottis (principal); J96.01 Acute respiratory failure with hypoxia; E87.1 Hypo-osmolality and hyponatremia; I10 Essential (primary) hypertension; K21.9 Gastro-esophageal reflux disease without esophagitis; E78.5 Hyperlipidemia, unspecified; G47.33 Obstructive sleep apnea (adult) (pediatric); I73.9 Peripheral vascular disease, unspecified; F10.10 Alcohol abuse, uncomplicated; Z79.899 Other long term (current) drug therapy; Z99.81 Dependence on supplemental oxygen; D72.829 Elevated white blood cell count, unspecified; R19.7 Diarrhea, unspecified; E87.6 Hypokalemia
CPT/HCPCS: 31502; 31720; 36415; 70491; 74018; 74230; 80048; 85025; 88305; 92526; 92610; 92611; 94640; 94664; 94762; 96374-59; 99285-25; A9270; J0165; J0360; J1100; J1644; J2003; J2250; J2405; J2470; J2704; J2765; J2919; J3010; J7120; Q9967

== ENCOUNTER 2025-07-16 11:29 | Emergency (ER) | payer OTHER ==
[~2025-07-16] VITALS: Ht 177.8 cm; Wt 99.8 kg
[2025-07-16] MEDS ORDERED: Magnesium Sulf 2 GM/Water 50ML 50 ML IV ONE (13:30)
[2025-07-16 16:30] VITALS: BP 132/72
== END 2025-07-16 16:42 | disposition home or self-care (01) ==
LOC: ER 11:29
DX: E83.51 Hypocalcemia (principal); E83.42 Hypomagnesemia; C32.9 Malignant neoplasm of larynx, unspecified; I10 Essential (primary) hypertension; Z79.899 Other long term (current) drug therapy
CPT/HCPCS: 82330; 83735; 93005; 93010; J0612; J3475

== ENCOUNTER → 2025-07-16 | Outpatient (CLI) | payer OTHER ==
[~2025-07-16] MED LIST changes: +GABAPENTIN PO
[2025-07-16 10:19] LABS: BASOPHILS ABSOLUTE AUTO 0.01 K/mm3 (0.00-0.23); BASOPHILS PERCENT AUTO 0 % (0-2); EOSINOPHILS ABSOLUTE AUTO 0.01 K/mm3 (0.00-0.68); EOSINOPHILS PERCENT AUTO 0 % (0-6); Hematocrit 32.6 % (37.0-53.0); Hemoglobin 11.9 g/dL (13.5-17.5); IMMATURE GRAN ABSOLUTE AUTO 0.04 K/mm3 (0.00-0.10); IMMATURE GRAN PERCENT AUTO 1 % (0-1); LYMPHOCYTES ABSOLUTE AUTO 0.41 K/mm3 (0.84-5.20); LYMPHOCYTES PERCENT AUTO 8 % (21-46); MONOCYTES ABSOLUTE AUTO 1.04 K/mm3 (0.16-1.47); MONOCYTES PERCENT AUTO 20 % (4-13); Mean Corpuscular HGB Conc 36.5 g/dL (31.5-36.5); Mean Corpuscular Volume 88 fL (80-100); NEUTROPHILS ABSOLUTE AUTO 3.66 K/mm3 (1.96-9.15); NEUTROPHILS PERCENT AUTO 71 % (41-73); NRBC ABSOLUTE 0.00 K/mm3 (0.00-0.02); NRBC Auto 0.0 /100 WBC (0.0-0.2); Platelet Count 231 K/mm3 (150-400); RDW Coefficient Variation 16.3 % (11.7-14.2); RDW Standard Deviation 52.1 fL (35.1-46.3)
[2025-07-16 10:40] LABS: Anion Gap 17.0 mmol/L (3-11); Blood Urea Nitrogen 28.0 mg/dL (8-24); CO2, Blood 26.0 mmol/L (21-32); Calcium, Blood 6.2 mg/dL (8.5-10.1); Chloride, Blood 97.0 mmol/L (98-108); Creatinine, Blood 1.31 mg/dL (0.60-1.20); Glucose, Blood 167.0 mg/dL (70-99); Potassium, Blood 3.5 mmol/L (3.5-5.5); Sodium, Blood 136.0 mmol/L (136-145)
== END | disposition home or self-care (01) ==
LOC: LAB 09:55 → LAB SHORT 09:55
PROVIDERS: Internal Medicine Hematology & Oncology
DX: C32.9 Malignant neoplasm of larynx, unspecified (principal)
CPT/HCPCS: 80048; 85025